=== PATIENT | female | born 1950 | race Caucasian/White ===

== ENCOUNTER 2017-07-18 20:34 | Inpatient (IN) | payer MEDICARE, OTHER ==
[~2017-07-18] VITALS: Ht 160 cm; Wt 70.5 kg
[2017-07-18 21:14] LABS: BASOPHILS # (AUTO) 0.1 X10'3 (0-0.2); BASOPHILS % (AUTO) 0.6 % (0-1); EOSINOPHILS % (AUTO) 8.3 % (0-6); HEMOGLOBIN 12.8 g/dl (12.0-16.0); LYMPHOCYTES # (AUTO) 2.6 X10'3 (1.1-4.8); LYMPHOCYTES % (AUTO) 21.7 % (21-51); MEAN CORPUSCULAR HEMOGLOBIN 29.2 PG (27.0-31.0); MEAN CORPUSCULAR HGB CONC 34.6 % (33.0-36.5); MEAN CORPUSCULAR VOLUME 84.3 FL (78-98); MEAN PLATELET VOLUME 7.1 FL (7.4-10.4); MONOCYTES # (AUTO) 0.9 X10'3 (0-0.9); MONOCYTES % (AUTO) 7.1 % (2-12); NEUTROPHILS # (AUTO) 7.6 X10'3 (1.8-7.7); NEUTROPHILS % (AUTO) 62.3 % (42-75); PLATELET COUNT 507 X10'3 (140-440); RED BLOOD COUNT 4.39 X10'6 (4.20-5.60); WHITE BLOOD COUNT 12.1 X10'3 (4.5-11.0)
[2017-07-18 21:25] LABS: INR 0.9 INR; PARTIAL THROMBOPLASTIN TIME 24 SECONDS (22-32); PROTHROMBIN TIME 9.4 SECONDS (9.0-12.0)
[2017-07-18 21:30] LABS: ALANINE AMINOTRANSFERASE 23 U/L (12-78); ALBUMIN 3.3 G/DL (3.4-5.0); ALBUMIN/GLOBULIN RATIO 0.7 (1.1-1.5); ALKALINE PHOSPHATASE 92 IU/L (46-116); ANION GAP 13 (8-16); ASPARTATE AMINO TRANSFERASE 15 U/L (10-37); BILIRUBIN,TOTAL 0.2 MG/DL (0.1-1.0); BLOOD UREA NITROGEN 19 MG/DL (7-18); BUN/CREATININE RATIO 18.3 (6.6-38.0); CALCIUM 9.2 MG/DL (8.5-10.1); CHLORIDE 103 MMOL/L (99-107); CREATININE 1.04 MG/DL (0.40-0.90); GLUCOSE 172 MG/DL (70-104); POTASSIUM 3.4 MMOL/L (3.5-5.1); SODIUM 138 MMOL/L (135-145); TOTAL CARBON DIOXIDE 22.2 MMOL/L (24-32); eGFR 53 ML/MIN
[2017-07-18] MEDS ORDERED: methylPREDNISolone sod succ 125mg/2ml vial IV ONE (21:40)
[2017-07-18] MEDS ORDERED: albuterol 2.5 MG/3 ML nebule CONTNEB PRN (21:40)
[2017-07-18] MEDS ORDERED: iohexol 350MG/ML 100ml bottle IV ONE (21:48)
[2017-07-18] MEDS: MESSAGE TO PHARMACY PO NR (21:50)
[2017-07-19] MEDS ORDERED: azithromycin/NS 500mg/250ml 250 ML IV ONE (00:10)
[2017-07-19] MEDS ORDERED: HYDR25TA4 PO (00:41)
[2017-07-19] MEDS ORDERED: METF500T PO ×2 (00:41)
[2017-07-19] MEDS ORDERED: ATOR20TA PO (00:41)
[2017-07-19] MEDS ORDERED: ASPI81TA52 PO (00:41)
[2017-07-19] MEDS ORDERED: SPIR25TA3 PO (00:41)
[2017-07-19] MEDS ORDERED: LOSA25TA96 PO (00:41)
[2017-07-19] MEDS ORDERED: AMLO2.5T2 PO (00:41)
[2017-07-19] MEDS ORDERED: HYDROcodone/acetaminophen 5mg/325mg tablet PO PRN (01:05)
[2017-07-19] MEDS ORDERED: acetaminophen 325mg tablet PO PRN ×2 (01:05)
[2017-07-19] MEDS ORDERED: ondansetron/PF 4mg/2ml inj IV PRN (01:05)
[2017-07-19] MEDS ORDERED: albuterol 2.5 MG/3 ML nebule NEB PRN (01:10)
[2017-07-19] MEDS ORDERED: dextrose ORAL solution 15 GM/59 ML bottle PO PRN ×2 (01:15)
[2017-07-19] MEDS ORDERED: MESSAGE TO PHARMACY PO ONE (01:15)
[2017-07-19] MEDS ORDERED: glucagon, human recombinant 1mg kit SUBCUT PRN (01:15)
[2017-07-19] MEDS ORDERED: dextrose 50%-water 50ml dispensing syringe IV PRN ×2 (01:15)
[2017-07-19] MEDS ORDERED: potassium Cl 20 mEq SR tablet PO PRN (01:25)
[2017-07-19] MEDS ORDERED: potassium Cl 40MEQ/NS 500ml 500 ML IV PRN ×2 (01:25)
[2017-07-19] MEDS: metroNIDAZOLE 500mg tablet PO SCH ×3 (01:28→20:51)
[2017-07-19] MEDS: ipratropium/albuterol 3ml nebule NEB SCH ×6 (03:39→22:53)
[2017-07-19 04:13] LABS: HEMOGLOBIN A1C 7.1 % (4.5-6.2)
[2017-07-19 07:55] VITALS: BP 129/69
[2017-07-19] MEDS ORDERED: famotidine/PF 10 mg/ml inj IV SCH (08:00)
[2017-07-19] MEDS ORDERED: methylPREDNISolone sod succ 125mg/2ml vial IV SCH (08:00)
[2017-07-19] MEDS ORDERED: HYDROchlorothiazide 25mg tablet PO SCH (08:00)
[2017-07-19] MEDS ORDERED: spironolactone 25 MG tablet PO SCH (08:00)
[2017-07-19] MEDS ORDERED: amLODIPine 2.5mg tablet PO SCH (08:00)
[2017-07-19] MEDS: insulin Lispro (HumaLOG) vial - multi-dose SQ SCH ×4 (09:20→21:03)
[2017-07-19] MEDS: lactobacillus rhamnosus 10,000 MMU CELLS/CAPSULE PO SCH ×2 (09:23→20:51)
[2017-07-19] MEDS: guaiFENesin ER 600mg tablet PO SCH ×2 (09:23→20:51)
[2017-07-19] MEDS: atorvastatin 20mg tablet PO SCH (09:24)
[2017-07-19] MEDS: aspirin 81mg tablet.DR PO SCH (09:24)
[2017-07-19] MEDS: losartan 25mg tablet PO SCH (09:24)
[2017-07-19 10:00] VITALS: BP 121/60
[2017-07-19 15:00] VITALS: BP 108/56
[2017-07-19 15:10] VITALS: BP 115/61
[2017-07-19] MEDS: methylPREDNISolone sod succ/PF 40mg inj. IV SCH ×2 (16:26→23:41)
[2017-07-19] MEDS ORDERED: famotidine 20mg tablet PO SCH (20:00)
[2017-07-19] MEDS: amLODIPine 2.5mg tablet PO SCH (20:50)
[2017-07-19] MEDS: azithromycin 250mg tablet PO SCH (20:51)
[2017-07-19] MEDS: spironolactone 25 MG tablet PO SCH (20:51)
[2017-07-19] MEDS: famotidine 20mg tablet PO SCH (20:52)
[2017-07-19] MEDS: HYDROchlorothiazide 25mg tablet PO SCH (20:52)
[2017-07-19] MEDS: insulin glargine (Lantus) pen - multi-dose SQ SCH (21:01)
[2017-07-19] MEDS: MESSAGE TO PHARMACY PO NR (21:32)
[2017-07-19 22:00] VITALS: BP 108/50
[2017-07-20] MEDS: ipratropium/albuterol 3ml nebule NEB SCH ×6 (02:43→23:33)
[2017-07-20 05:34] LABS: BASOPHILS % (AUTO) 0.2 % (0-1); EOSINOPHILS % (AUTO) 0 % (0-6); HEMATOCRIT 33.5 % (35.0-45.0); HEMOGLOBIN 11.4 g/dl (12.0-16.0); LYMPHOCYTES # (AUTO) 1.4 X10'3 (1.1-4.8); LYMPHOCYTES % (AUTO) 5.5 % (21-51); MEAN CORPUSCULAR HEMOGLOBIN 29.1 PG (27.0-31.0); MEAN CORPUSCULAR VOLUME 85.6 FL (78-98); MEAN PLATELET VOLUME 7.4 FL (7.4-10.4); MONOCYTES # (AUTO) 0.4 X10'3 (0-0.9); MONOCYTES % (AUTO) 1.6 % (2-12); NEUTROPHILS # (AUTO) 22.8 X10'3 (1.8-7.7); NEUTROPHILS % (AUTO) 92.7 % (42-75); PLATELET COUNT 468 X10'3 (140-440); RED BLOOD COUNT 3.92 X10'6 (4.20-5.60); WHITE BLOOD COUNT 24.6 X10'3 (4.5-11.0)
[2017-07-20 05:44] LABS: ALBUMIN 2.8 G/DL (3.4-5.0); ANION GAP 11 (8-16); BLOOD UREA NITROGEN 29 MG/DL (7-18); BUN/CREATININE RATIO 29.9 (6.6-38.0); CALCIUM 8.9 MG/DL (8.5-10.1); CHLORIDE 103 MMOL/L (99-107); CREATININE 0.97 MG/DL (0.40-0.90); GLUCOSE 232 MG/DL (70-104); MAGNESIUM 2.2 MG/DL (1.5-2.4); POTASSIUM 3.1 MMOL/L (3.5-5.1); SODIUM 138 MMOL/L (135-145); TOTAL CARBON DIOXIDE 24.4 MMOL/L (24-32); eGFR 57 ML/MIN
[2017-07-20 06:00] VITALS: BP 99/42
[2017-07-20] MEDS: losartan 25mg tablet PO SCH (08:00)
[2017-07-20] MEDS: metroNIDAZOLE 500mg tablet PO SCH ×2 (08:01→19:25)
[2017-07-20] MEDS: aspirin 81mg tablet.DR PO SCH (08:01)
[2017-07-20] MEDS: lactobacillus rhamnosus 10,000 MMU CELLS/CAPSULE PO SCH ×2 (08:01→19:25)
[2017-07-20] MEDS: atorvastatin 20mg tablet PO SCH (08:01)
[2017-07-20] MEDS: guaiFENesin ER 600mg tablet PO SCH ×2 (08:02→19:25)
[2017-07-20] MEDS: methylPREDNISolone sod succ/PF 40mg inj. IV SCH ×2 (08:02→16:30)
[2017-07-20] MEDS: famotidine 20mg tablet PO SCH ×2 (08:02→19:25)
[2017-07-20 10:00] VITALS: BP 104/44
[2017-07-20] MEDS: potassium Cl 20 mEq SR tablet PO PRN ×2 (11:13→21:16)
[2017-07-20] MEDS: insulin Lispro (HumaLOG) vial - multi-dose SQ SCH ×2 (13:40→19:24)
[2017-07-20 18:52] VITALS: BP 114/62
[2017-07-20] MEDS: MESSAGE TO PHARMACY PO NR (20:53)
[2017-07-20] MEDS: insulin glargine (Lantus) pen - multi-dose SQ SCH (21:15)
[2017-07-20] MEDS: spironolactone 25 MG tablet PO SCH (21:16)
[2017-07-20] MEDS: HYDROchlorothiazide 25mg tablet PO SCH (21:17)
[2017-07-20] MEDS: amLODIPine 2.5mg tablet PO SCH (21:17)
[2017-07-20] MEDS: azithromycin 250mg tablet PO SCH (21:17)
[2017-07-20 22:54] VITALS: BP 129/63
[2017-07-21] MEDS: methylPREDNISolone sod succ/PF 40mg inj. IV SCH ×2 (00:28→09:46)
[2017-07-21] MEDS: potassium Cl 20 mEq SR tablet PO PRN (02:01)
[2017-07-21] MEDS: ipratropium/albuterol 3ml nebule NEB SCH ×6 (04:15→23:39)
[2017-07-21 05:55] LABS: BASOPHILS % (AUTO) 0 % (0-1); EOSINOPHILS # (AUTO) 0.6 X10'3 (0-0.9); EOSINOPHILS % (AUTO) 2.4 % (0-6); HEMATOCRIT 34.1 % (35.0-45.0); HEMOGLOBIN 11.6 g/dl (12.0-16.0); MEAN CORPUSCULAR HEMOGLOBIN 29.1 PG (27.0-31.0); MEAN CORPUSCULAR HGB CONC 33.9 % (33.0-36.5); MEAN CORPUSCULAR VOLUME 85.8 FL (78-98); MEAN PLATELET VOLUME 7.3 FL (7.4-10.4); MONOCYTES # (AUTO) 0.6 X10'3 (0-0.9); MONOCYTES % (AUTO) 2.3 % (2-12); NEUTROPHILS # (AUTO) 21.7 X10'3 (1.8-7.7); NEUTROPHILS % (AUTO) 91.3 % (42-75); PLATELET COUNT 444 X10'3 (140-440); RED BLOOD COUNT 3.97 X10'6 (4.20-5.60); RED CELL DISTRIBUTION WIDTH 16.2 % (11.5-14.5); WHITE BLOOD COUNT 23.8 X10'3 (4.5-11.0)
[2017-07-21 06:00] VITALS: BP 110/55
[2017-07-21 06:21] LABS: ALBUMIN 2.7 G/DL (3.4-5.0); ANION GAP 11 (8-16); BLOOD UREA NITROGEN 30 MG/DL (7-18); BUN/CREATININE RATIO 30.3 (6.6-38.0); CHLORIDE 104 MMOL/L (99-107); CREATININE 0.99 MG/DL (0.40-0.90); GLUCOSE 264 MG/DL (70-104); MAGNESIUM 2.1 MG/DL (1.5-2.4); POTASSIUM 3.6 MMOL/L (3.5-5.1); SODIUM 138 MMOL/L (135-145); TOTAL CARBON DIOXIDE 23.5 MMOL/L (24-32); eGFR 56 ML/MIN
[2017-07-21] MEDS: atorvastatin 20mg tablet PO SCH (09:45)
[2017-07-21] MEDS: metroNIDAZOLE 500mg tablet PO SCH ×2 (09:45→21:05)
[2017-07-21] MEDS: lactobacillus rhamnosus 10,000 MMU CELLS/CAPSULE PO SCH ×2 (09:46→21:05)
[2017-07-21] MEDS: guaiFENesin ER 600mg tablet PO SCH ×2 (09:46→21:04)
[2017-07-21] MEDS: famotidine 20mg tablet PO SCH ×2 (09:46→21:05)
[2017-07-21] MEDS: aspirin 81mg tablet.DR PO SCH (09:46)
[2017-07-21] MEDS: losartan 25mg tablet PO SCH (09:49)
[2017-07-21] MEDS: insulin Lispro (HumaLOG) vial - multi-dose SQ SCH ×2 (09:59→14:07)
[2017-07-21 10:00] VITALS: BP 129/73
[2017-07-21 13:27] LABS: ANTIMYELOPEROXIDASE ABS <9.0 U/mL (0.0-9.0); ANTIPROTEINASE 3 ABS <3.5 U/mL (0.0-3.5)
[2017-07-21] MEDS: salt irrigation nasal spray 45 ML SPRAY NS PRN ×2 (14:00→16:55)
[2017-07-21] MEDS: metFORMIN 500mg tablet PO SCH (16:55)
[2017-07-21 19:14] VITALS: BP 116/66
[2017-07-21] MEDS: insulin glargine (Lantus) pen - multi-dose SQ SCH (21:00)
[2017-07-21] MEDS: spironolactone 25 MG tablet PO SCH (21:05)
[2017-07-21] MEDS: HYDROchlorothiazide 25mg tablet PO SCH (21:05)
[2017-07-21] MEDS: azithromycin 250mg tablet PO SCH (21:05)
[2017-07-21] MEDS: amLODIPine 2.5mg tablet PO SCH (21:06)
[2017-07-22] MEDS: ipratropium/albuterol 3ml nebule NEB SCH ×8 (03:03→23:38)
[2017-07-22 05:00] VITALS: BP 131/70
[2017-07-22 06:03] LABS: BASOPHILS # (AUTO) 0.1 X10'3 (0-0.2); BASOPHILS % (AUTO) 0.6 % (0-1); EOSINOPHILS # (AUTO) 0.1 X10'3 (0-0.9); EOSINOPHILS % (AUTO) 0.3 % (0-6); HEMATOCRIT 36.6 % (35.0-45.0); HEMOGLOBIN 12.4 g/dl (12.0-16.0); LYMPHOCYTES # (AUTO) 3.6 X10'3 (1.1-4.8); MEAN CORPUSCULAR HGB CONC 33.9 % (33.0-36.5); MEAN CORPUSCULAR VOLUME 85.7 FL (78-98); MEAN PLATELET VOLUME 7.1 FL (7.4-10.4); MONOCYTES # (AUTO) 1.5 X10'3 (0-0.9); MONOCYTES % (AUTO) 6.6 % (2-12); NEUTROPHILS # (AUTO) 17.3 X10'3 (1.8-7.7); NEUTROPHILS % (AUTO) 76.5 % (42-75); PLATELET COUNT 450 X10'3 (140-440); RED BLOOD COUNT 4.27 X10'6 (4.20-5.60); RED CELL DISTRIBUTION WIDTH 16.2 % (11.5-14.5); WHITE BLOOD COUNT 22.6 X10'3 (4.5-11.0)
[2017-07-22 06:22] LABS: ALBUMIN 2.8 G/DL (3.4-5.0); ANION GAP 11 (8-16); BLOOD UREA NITROGEN 31 MG/DL (7-18); BUN/CREATININE RATIO 33.7 (6.6-38.0); CHLORIDE 106 MMOL/L (99-107); CREATININE 0.92 MG/DL (0.40-0.90); GLUCOSE 119 MG/DL (70-104); MAGNESIUM 1.8 MG/DL (1.5-2.4); POTASSIUM 3.3 MMOL/L (3.5-5.1); SODIUM 141 MMOL/L (135-145); eGFR 61 ML/MIN
[2017-07-22] MEDS: famotidine 20mg tablet PO SCH ×2 (08:02→20:07)
[2017-07-22] MEDS: predniSONE 20 mg tablet PO SCH (08:02)
[2017-07-22] MEDS: atorvastatin 20mg tablet PO SCH (08:02)
[2017-07-22] MEDS: lactobacillus rhamnosus 10,000 MMU CELLS/CAPSULE PO SCH ×2 (08:02→20:07)
[2017-07-22] MEDS: guaiFENesin ER 600mg tablet PO SCH ×2 (08:02→20:07)
[2017-07-22] MEDS: metroNIDAZOLE 500mg tablet PO SCH ×2 (08:02→20:07)
[2017-07-22] MEDS: aspirin 81mg tablet.DR PO SCH (08:02)
[2017-07-22] MEDS: metFORMIN 500mg tablet PO SCH ×2 (08:02→17:14)
[2017-07-22] MEDS: losartan 25mg tablet PO SCH (08:08)
[2017-07-22] MEDS ORDERED: potassium Cl 20 mEq SR tablet PO PRN (08:55)
[2017-07-22] MEDS ORDERED: potassium Cl 40MEQ/NS 500ml 500 ML IV PRN ×2 (08:55)
[2017-07-22] MEDS: salt irrigation nasal spray 45 ML SPRAY NS PRN ×3 (09:22→20:08)
[2017-07-22] MEDS: potassium Cl 20 mEq SR tablet PO PRN ×3 (09:22→20:07)
[2017-07-22 09:58] VITALS: BP 119/62
[2017-07-22] MEDS: insulin Lispro (HumaLOG) vial - multi-dose SQ SCH (14:00)
[2017-07-22 18:00] VITALS: BP 129/74
[2017-07-22 20:05] VITALS: BP 118/76
[2017-07-22] MEDS: azithromycin 250mg tablet PO SCH (20:06)
[2017-07-22] MEDS: amLODIPine 2.5mg tablet PO SCH (20:06)
[2017-07-22] MEDS: spironolactone 25 MG tablet PO SCH (20:07)
[2017-07-22] MEDS: HYDROchlorothiazide 25mg tablet PO SCH (20:07)
[2017-07-22 20:16] VITALS: BP 118/76
[2017-07-22] MEDS: insulin glargine (Lantus) pen - multi-dose SQ SCH (21:00)
[2017-07-22 22:00] VITALS: BP 118/76
[2017-07-23] MEDS: ipratropium/albuterol 3ml nebule NEB SCH ×4 (03:14→15:02)
[2017-07-23 05:00] VITALS: BP 126/68
[2017-07-23 06:35] LABS: BASOPHILS # (AUTO) 0.1 X10'3 (0-0.2); BASOPHILS % (AUTO) 0.3 % (0-1); EOSINOPHILS # (AUTO) 0.7 X10'3 (0-0.9); EOSINOPHILS % (AUTO) 3.7 % (0-6); HEMOGLOBIN 11.9 g/dl (12.0-16.0); LYMPHOCYTES # (AUTO) 4.8 X10'3 (1.1-4.8); LYMPHOCYTES % (AUTO) 26.6 % (21-51); MEAN CORPUSCULAR HEMOGLOBIN 28.7 PG (27.0-31.0); MEAN CORPUSCULAR VOLUME 87.1 FL (78-98); MEAN PLATELET VOLUME 7.2 FL (7.4-10.4); MONOCYTES # (AUTO) 1.1 X10'3 (0-0.9); MONOCYTES % (AUTO) 6.1 % (2-12); NEUTROPHILS # (AUTO) 11.5 X10'3 (1.8-7.7); NEUTROPHILS % (AUTO) 63.3 % (42-75); PLATELET COUNT 415 X10'3 (140-440); RED BLOOD COUNT 4.13 X10'6 (4.20-5.60); RED CELL DISTRIBUTION WIDTH 16.4 % (11.5-14.5); WHITE BLOOD COUNT 18.1 X10'3 (4.5-11.0)
[2017-07-23 06:52] LABS: ALBUMIN 2.6 G/DL (3.4-5.0); ANION GAP 9 (8-16); BLOOD UREA NITROGEN 30 MG/DL (7-18); BUN/CREATININE RATIO 34.9 (6.6-38.0); CALCIUM 8.7 MG/DL (8.5-10.1); CHLORIDE 106 MMOL/L (99-107); CREATININE 0.86 MG/DL (0.40-0.90); GLUCOSE 117 MG/DL (70-104); MAGNESIUM 1.6 MG/DL (1.5-2.4); POTASSIUM 3.8 MMOL/L (3.5-5.1); SODIUM 140 MMOL/L (135-145); TOTAL CARBON DIOXIDE 25.5 MMOL/L (24-32); eGFR 66 ML/MIN
[2017-07-23] MEDS: predniSONE 20 mg tablet PO SCH (07:05)
[2017-07-23] MEDS: guaiFENesin ER 600mg tablet PO SCH (07:05)
[2017-07-23] MEDS: salt irrigation nasal spray 45 ML SPRAY NS PRN ×2 (07:05→13:32)
[2017-07-23] MEDS: metroNIDAZOLE 500mg tablet PO SCH (07:05)
[2017-07-23] MEDS: atorvastatin 20mg tablet PO SCH (07:06)
[2017-07-23] MEDS: famotidine 20mg tablet PO SCH (07:06)
[2017-07-23] MEDS: losartan 25mg tablet PO SCH (07:06)
[2017-07-23] MEDS: aspirin 81mg tablet.DR PO SCH (07:06)
[2017-07-23] MEDS: lactobacillus rhamnosus 10,000 MMU CELLS/CAPSULE PO SCH (07:06)
[2017-07-23] MEDS: metFORMIN 500mg tablet PO SCH (07:06)
[2017-07-23 10:00] VITALS: BP 119/71
[2017-07-23] MEDS ORDERED: SODI104S3 NS (13:02)
[2017-07-23] MEDS ORDERED: IPRA3AMP9 NEB (13:02)
[2017-07-23] MEDS ORDERED: PRED10TA23 PO (13:02)
[2017-07-23] MEDS ORDERED: GUAI600T45 PO (13:02)
[2017-07-23] MEDS ORDERED: ALBU2.5V7 NEB (13:02)
[2017-07-23] MEDS ORDERED: AZI25OT PO (13:04)
[2017-07-23] MEDS: insulin Lispro (HumaLOG) vial - multi-dose SQ SCH (13:38)
[2017-07-23] MEDS ORDERED: ALBU8HFA PO (14:43)
== END 2017-07-23 15:20 | disposition home or self-care (01) | DRG 872 ==
LOC: ER 20:34 → ED HOLD 07-19 01:02 → OBSVTOIN 07-19 01:02 → ORTHO 4S 07-19 07:45
PROVIDERS: ADMIT Family Medicine; ATTEND Emergency Medicine
PROC: B32T1ZZ Computerized Tomography (CT Scan) of Left Pulmonary Artery using Low Osmolar Contrast (ICD-10-PCS; principal; 2017-07-18)
PROC: B3201ZZ Computerized Tomography (CT Scan) of Thoracic Aorta using Low Osmolar Contrast (ICD-10-PCS; 2017-07-18)
PROC: B32S1ZZ Computerized Tomography (CT Scan) of Right Pulmonary Artery using Low Osmolar Contrast (ICD-10-PCS; 2017-07-18)
DX: A41.9 Sepsis, unspecified organism (principal); D72.1 Eosinophilia; E87.6 Hypokalemia; E11.9 Type 2 diabetes mellitus without complications; E78.5 Hyperlipidemia, unspecified; J32.0 Chronic maxillary sinusitis; J20.9 Acute bronchitis, unspecified; I10 Essential (primary) hypertension; R09.02 Hypoxemia; Z88.8 Allergy status to other drugs, medicaments and biological substances; Z79.899 Other long term (current) drug therapy; Z79.82 Long term (current) use of aspirin; Z82.49 Family history of ischemic heart disease and other diseases of the circulatory system
CPT/HCPCS: 36415; 71046; 71275; 80048; 80053; 82948; 83036; 83735; 83880; 84484; 85025; 85610; 85730; 86021; 87070; 87502; 87503; 93005; 94640; 94644; 94760; 96365; 96375; 99285; J0456; J1815; J2920; J2930; J3490; J7512; Q9967